=== PATIENT | female | born 1985 | race Caucasian/White ===

== ENCOUNTER 2017-06-27 10:45 | Emergency (ER) | payer BC ==
--- NOTE | 2017-06-27 11:04 | Emergency Department Record ---
History of Present Illness - General Chief complaint: Vomiting Stated complaint: VOMITING X 3 DAYS Time Seen by Provider: 06/27/17 11:04 Source: Patient Mode of Arrival: Ambulatory Limitations: No limitations - History of Present Illness Initial comments: The patient is here due to a 3 day hx of intermittent nausea, vomiting, and dizziness. She describes the dizziness as like the room is spinning and it comes on with head movement and standing up. She has had a mild HERRMANN off and on but none now. Her LMP was 3 weeks ago and she has had her tubes tied. MD complaint: Nausea, Vomiting Onset/Timin -: Hour(s) - Related Data Home Medications Medication Instructions Recorded Confirmed Last Taken Acetaminophen [Tylenol 325Mg] 325 mg PO Q6H 06/27/17 06/27/17 Unknown Ascorbic Acid [Vitamin C] 500 mg PO DAILY 06/27/17 06/27/17 06/27/17 Aspirin [Children's Aspirin] 81 mg PO DAILY 06/27/17 06/27/17 06/27/17 Buspirone HCl [Buspar] 5 mg PO DAILY 06/27/17 06/27/17 06/27/17 Cholecalciferol (Vitamin D3) 2,000 unit PO DAILY 06/27/17 06/27/17 06/27/17 [Vitamin D3] Furosemide [Lasix] 20 mg PO DAILY 06/27/17 06/27/17 06/27/17 Levothyroxine Sodium [Synthroid] 125 mcg PO DAILY 06/27/17 06/27/17 06/27/17 Magnesium Hydroxide [Milk of 400 mg PO ASDIR 06/27/17 06/27/17 Unknown Magnesia] Melatonin 3 mg PO QHS 06/27/17 06/27/17 06/26/17 Sodium Phosphate,[place]-Dibasic 133 ml RC ASDIR 06/27/17 06/27/17 Unknown [Fleet Enema] Vit B2/Niacin/B6/B12/Dexpanth [B 1 ml PO DAILY 06/27/17 06/27/17 06/27/17 Complex Sublingual Liquid] Previous Rx's Medication Instructions Recorded Meclizine HCl [Antivert] 25 mg PO Q8H #20 tablet 06/27/17 Ondansetron [Zofran Odt] 4 mg SL .Q4-6H PRN #12 tab.rapdis 06/27/17 Allergies Allergy/AdvReac Type Severity Reaction Status Date / Time No Known Drug Allergies Allergy Verified 06/27/17 12:22 Travel Screening - Travel/Exposure Within Last 30 Days Have you traveled within the last 30 days?: No - Travel/Exposure Within Last Year Have you traveled outside the [place] in the last year?: No - Additonal Travel Details Have you been exposed to anyone with a communicable illness?: No - Travel Symptoms Symptom Screening: None Review of Systems Constitutional: Denies: Chills, Fever Eyes: Denies: Eye discharge ENT: Denies: Congestion Respiratory: Denies: Cough, Dyspnea Past Medical History - SOCIAL HISTORY Smoking Status: Never smoker Alcohol Use: Occasional Drug Use: None - RESPIRATORY Hx Respiratory Disorders: Yes Hx Asthma: Yes - CARDIOVASCULAR Hx Cardio Disorders: No - NEURO Hx Neuro Disorders: No - GI Hx GI Disorders: No - Hx Kidney Stones: Yes - ENDOCRINE Hx Endocrine Disorders: No - MUSCULOSKELETAL Hx Musculoskeletal Disorders: Yes Comment:: extensive knee problems/surgeries - PSYCH Hx Psych Problems: No - HEMATOLOGY/ONCOLOGY Hx Hematology/Oncology Disorders: No Family Medical History Any Significant Family History?: Yes Family Hx Comment (NOT TO BE USED IN PLACE OF ITEMS BELOW): extensive family hx of IBS per patient and mother Physical Exam - General General Appearance: Alert, Oriented x3, Cooperative, No acute distress - Head Head exam: Atraumatic, Normocephalic, Normal inspection - Eye Eye exam: Normal appearance, PERRL, EOMI. negative: Nystagmus - ENT ENT exam: Normal exam, Mucous membranes moist, Normal external ear exam, Normal orophraynx, TM's normal bilaterally Throat exam: Normal inspection. negative: Tonsillar erythema, Tonsillar exudate - Neck Neck exam: Normal inspection, Full ROM. negative: Lymphadenopathy, Meningismus (The neck is very supple.), Tenderness - Respiratory Respiratory exam: Normal lung sounds bilaterally. negative: Respiratory distress - Cardiovascular Cardiovascular Exam: Regular rate, Normal rhythm, Normal heart sounds - GI/Abdominal GI/Abdominal exam: Soft, Normal bowel sounds. negative: Tenderness - Extremities Extremities exam: Normal inspection, Full ROM, Normal capillary refill. negative: Tenderness - Neurological Neurological exam: Alert, Normal gait, Oriented X3, Other (Neg Drift and [place].). negative: Abnormal gait, Motor sensory deficit Course Vital Signs 06/27/17 10:53 Temperature 98.7 F Pulse Rate 71 Respiratory 18 Rate Blood Pressure 102/66 Pulse Ox 99 - Reevaluation(s) Reevaluation #1: The patient is doing a lot better at this time. Her nausea and dizziness have resolved but now she has a mild HERRMANN. 06/27/17 11:56 Reevaluation #2: The patient is doing much better. She denies any nausea or HERRMANN or dizziness. She is up walking with no difficulty and feels ready for home. 06/27/17 12:53 Medical Decision Making - Data Complexity MDM Data: Labs Ordered and/or Reviewed - Lab Data Result diagrams: 06/27/17 11:15 06/27/17 11:15 Disposition Disposition: Discharge Clinical Impression: Nausea and vomiting Qualifiers: Vomiting type: unspecified Vomiting Intractability: non-intractable Qualified Code(s): R11.2 - Nausea with vomiting, unspecified Disposition: Home, Self-Care Condition: (1) Good Instructions: Acute Nausea and Vomiting (ED) Additional Instructions: Please use the Zofran for nausea and Antivert for dizziness. Please drink plenty of fluids. Please see your PCP for recheck next week if not better. Return to the ER for any increased dizziness, nausea, or vomiting. Prescriptions: Meclizine HCl [Antivert] 25 mg PO Q8H #20 tablet Ondansetron [Zofran Odt] 4 mg SL .Q4-6H PRN #12 tab.rapdis PRN Reason: Nausea Forms: Patient Portal Access Time of Disposition: 13:08 Quality - Quality Measures Quality Measures: N/A - Blood Pressure Screening View Details: Yes Does Patient Have Any of the Following: No Blood Pressure Classification: Normal BP Reading Systolic Measurement: 102 Diastolic Measurement: 66 Screening for High Blood Pressure: < Normal BP, F/U Not Required > [[id number]]
[2017-06-27] MEDS ORDERED: 0.9 % SODIUM CHLORIDE 1,000 ML BAG IV ONE ×2 (11:08→11:40)
[2017-06-27] MEDS ORDERED: ONDANSETRON HCL IV 4 MG/2 ML VIAL IV ONE (11:08)
[2017-06-27 11:25] LABS: BASO % 0.3 % (0-6); EOS % 0.5 % (0-6); GRAN % 76.1 % (47-80); HEMATOCRIT 39.4 % (35.0-47.0); HEMOGLOBIN 13.5 gm/dl (11.6-16.0); LYMPH % 17.7 % (16-45); MEAN CELL VOLUME 89.3 fl (81-97); MEAN CORPUSCULAR HEMOGLOBIN 30.6 pg (27-33); MEAN CORPUSCULAR HGB CONC 34.3 g/dl (32-36); MEAN PLATELET VOLUME 10.5 fl (7.4-10.4); MONO % 5.4 % (0-9); PLATELET COUNT 269 K/uL (130-400); RED BLOOD COUNT 4.41 M/uL (3.80-5.40); RED CELL DISTRIBUTION WIDTH 12.2 % (11.5-14.5); WHITE BLOOD COUNT W/O DIFF 6.5 K/uL (4.2-12.2)
[2017-06-27 11:26] LABS: URINE APPEARANCE CLEAR; URINE BILIRUBIN NEGATIVE (NEGATIVE); URINE BLOOD NEGATIVE (NEGATIVE); URINE COLOR YELLOW; URINE GLUCOSE (UA) NEGATIVE (NEGATIVE); URINE KETONE 40 mg/dL (NEGATIVE); URINE LEUKOCYTE ESTERASE NEGATIVE (NEGATIVE); URINE NITRITE NEGATIVE (NEGATIVE); URINE PROTEIN NEGATIVE (NEGATIVE); URINE UROBILINOGEN 0.2 E.U./dL (0.20 - 1.00)
[2017-06-27 11:37] LABS: HCG,QUALITATIVE URINE NEGATIVE (NEGATIVE)
[2017-06-27] MEDS ORDERED: KETOROLAC 30 MG/ML VIAL IVP ONE (11:48)
[2017-06-27 11:55] LABS: ALB/GLOB RATIO 1.7 (1.1-1.8); ALBUMIN 4.7 g/dL (4.0-5.0); ALKALINE PHOSPHATASE 52 U/L (35-104); ALT/SGPT 9 U/L (<33); AST/SGOT 16 U/L (10.0-35.0); BLOOD UREA NITROGEN 9 mg/dL (6-20); CREATININE 0.5 mg/dL (0.5-0.9); EST GLOMERULAR FILTRATION RATE > 60 mL/min; GLUCOSE,RANDOM 92 mg/dL (74-109); TOTAL PROTEIN 7.5 g/dL (6.6-8.7)
== END 2017-06-27 13:28 | disposition home or self-care (01) ==
LOC: ER 10:45
DX: R11.2 Nausea with vomiting, unspecified (principal); R19.7 Diarrhea, unspecified; R51 Headache
CPT/HCPCS: 99284 ×2; 96374; 96375; 85025; 80053; 81003; 81025; J1885; J2405; J7030